=== PATIENT | male | born 1975 | race Two or more races ===

== ENCOUNTER 2018-08-31 12:37 | Emergency (ER) | payer SELFPAY ==
[~2018-08-31] VITALS: Wt 93.4 kg
[~2018-08-31 12:37] MED LIST: CIPR500T4 PO; HYDR-762 PO; TAMS-14 PO
[2018-08-31 12:42] VITALS: BP 133/84; PULSE 73; RESP 20
[2018-08-31] MEDS ORDERED: KETOROLAC 60 MG INJ IM STA (14:14)
[2018-08-31] MEDS ORDERED: DEXAMETHASONE 10 MG/ML 1 ML INJ PO ONE (14:30)
[2018-08-31] MEDS ORDERED: NAPR-985 PO (15:04)
[2018-08-31] MEDS ORDERED: HYDR-4011 PO (15:04)
[2018-08-31] MEDS ORDERED: CYCL10TA7 PO (15:04)
--- NOTE | 2018-08-31 15:28 | ERD ---
ER Documentation Chief Complaint Chief Complaint fell off truck AM about 8ft; R hip R leg 'muscle' pain. amb w limp. HPI 43-year-old male presenting with pain to right back and right hip. Patient denies any numbness. He denies any use of medications. His pain is worse with walking. Medical history is diabetes non insulin dependent. NKDA. Surgical history denies. Social history denies ROS All systems reviewed and are negative except as per history of present illness. Medications Home Meds Active Scripts Cyclobenzaprine Hcl* (Cyclobenzaprine Hcl*) 10 Mg Tablet, 10 MG PO TID, #15 TAB Prov:PORFIRIO CHEUNG PA-C 08/31/18 Naproxen* (Naprosyn*) 500 Mg Tablet, 500 MG PO BID PRN for PAIN AND/OR INFLAMMATION, #30 TAB Prov:PORFIRIO CHEUNG PA-C 08/31/18 Hydrocodone/Acetaminophen ([place] 5-325 Tablet) 1 Each Tablet, 1 TAB PO Q6H PRN for PAIN, #7 TAB Prov:PORFIRIO CHEUNG PA-C 08/31/18 Hydrocodone Bit-Acetaminophen* ([place]*) 10-325 Mg Tablet, 1 TAB PO Q6 PRN for PAIN, #7 TAB Prov:SALVATORE CEDEÑO 02/26/15 Tamsulosin Hcl* (Flomax*) 0.4 Mg Cap.er.24h, 0.4 MG PO QPM, #10 CAP Prov:SALVATORE CEDEÑO 02/26/15 Ciprofloxacin Hcl* (Ciprofloxacin Hcl*) 500 Mg Tablet, 500 MG PO BID for 3 Days, TAB Prov:SALVATORE CEDEÑO 02/26/15 Allergies Allergies: Coded Allergies: No Known Allergy (Unverified , 02/25/15) PMhx/Soc Hx Alcohol Use: No Hx Substance Use: No Hx Tobacco Use: No Smoking Status: Unknown if ever smoked FmHx Family History: No diabetes, No coronary disease, No other Physical Exam Vitals Vital Signs Date Temp Pulse Resp B/P (MAP) Pulse Ox O2 O2 Flow FiO2 Time Delivery Rate 08/31/18 97.1 73 20 133/84 97 12:42 (100) Physical Exam GENERAL: The patient is well-appearing, well-nourished, in no acute distress CHEST: Clear to auscultation bilaterally. There are no rales, wheezes or rhonchi. HEART: Regular rate and rhythm. No murmurs, clicks, rubs or gallops BACK: No midline or flank tenderness. EXTREMITIES: Tender to palpation to right hip. No pain with internal/external rotation. Pain extends down right buttock. NEUROLOGIC: Alert and oriented. Cranial nerves II through XII intact. Motor strength in all 4 extremities with 5 out of 5 strength. Sensation grossly intact. Normal speech and gait. Babinski negative. DTR 2+ throughout. SKIN: There is no apparent rash or petechiae. The skin is warm and dry. Results 24 hrs Current Medications Medications Dose Sig/Joshua Start Time Status Last (Trade) Ordered Route PRN Stop Time Admin Dose Reason Admin 10 mg ONCE ONCE 08/31/18 DC 08/31/18 Dexamethasone PO 14:30 14:25 (Decadron) 08/31/18 14:31 Ketorolac 60 mg ONCE STAT 08/31/18 DC 08/31/18 Tromethamine IM 14:14 14:24 (Toradol) 08/31/18 14:16 Procedures/MDM DIAGNOSTIC IMAGING REPORT Patient: JAE JIMENEZ : 1975 Age: 43 Sex: M MR #: [id number] DOS: 08/31/184 Ordering MD: RAMILA CHEUNG PA-C Location: [facility] Room/Bed: PROCEDURE: XR Hip. CLINICAL INDICATION: Right hip pain. TECHNIQUE: AP and frog lateral views of the right hip were performed. COMPARISON: None. FINDINGS: There is normal mineralization and alignment. No acute fracture or dislocation is identified. Mild degenerative changes of the right hip joint are noted with joint space narrowing and osteophytosis. No significant soft tissue swelling is noted. IMPRESSION: 1. No acute fracture or dislocation. 2. Mild right hip osteoarthrosis. DIAGNOSTIC IMAGING REPORT Patient: JAE JIMENEZ : 1975 Age: 43 Sex: M MR #: [id number] DOS: 08/31/18 1414 Ordering MD: RAMILA CHEUNG PA-C Location: [facility] Room/Bed: PROCEDURE: XR Lumbar Spine. CLINICAL INDICATION: Fall. Low back pain. TECHNIQUE: Three views of the lumbar spine are available for review COMPARISON: None available FINDINGS: There is straightening of normal lumbar lordosis. Alignment is intact. No acute fracture or dislocation is seen. The vertebral body heights are preserved. There are mild degenerative changes of lumbar spine at L5-S1. IMPRESSION: 1. No acute fracture or dislocation. 2. Mild discogenic disease at L5-S1. 3. Straightening of the normal lumbar lordosis. MDM: 43-year-old male complaining of pain to right leg. I have low suspicion for acute fracture dislocation. I have low suspicion for nerve deficit. She is discharged with supportive medications and told to follow-up with primary care within 1-2 days for close evaluation. All questions answered at discharge Departure Diagnosis: Primary Impression: Back pain Additional Impression: Fall with no significant injury Condition: Stable Patient Instructions: Back Pain (Acute Or Chronic) Referrals: [facility] YOU HAVE RECEIVED A MEDICAL SCREENING EXAM AND THE RESULTS INDICATE THAT YOU DO NOT HAVE A CONDITION THAT REQUIRES URGENT TREATMENT IN THE EMERGENCY DEPARTMENT. FURTHER EVALUATION AND TREATMENT OF YOUR CONDITION CAN WAIT UNTIL YOU ARE SEEN IN YOUR DOCTORS OFFICE WITHIN THE NEXT 1-2 DAYS. IT IS YOUR RESPONSIBILITY TO MAKE AN APPOINTMENT FOR FOLOW-UP CARE. IF YOU HAVE A PRIMARY DOCTOR --you should call your primary doctor and schedule an appointment IF YOU DO NOT HAVE A PRIMARY DOCTOR YOU CAN CALL OUR PHYSICIAN REFERRAL HOTLINE AT IF YOU CAN NOT AFFORD TO SEE A PHYSICIAN YOU CAN CHOSE FROM THE FOLLOWING [facility] [address] [facility]. [facility] [address] [facility] [address] [facility]. [facility] [address] [facility]. [facility] [place] [address] [facility]. [facility]. [address] Additional Instructions: FOLLOW UP WITH YOUR PRIMARY CARE PHYSICIAN TOMORROW.Return to this facility if you are not improving as expected. PORFIRIO CHEUNG PA-C Aug 31, 2018 15:28
== END 2018-08-31 15:23 | disposition home or self-care (01) ==
LOC: FTE 12:37
DX: M54.5 Low back pain (principal); E11.9 Type 2 diabetes mellitus without complications
CPT/HCPCS: 72100; 73510; 96372; 99284; J1100; J1885